=== PATIENT | male | born 1985 | race African-American/Black ===

== ENCOUNTER 2016-11-22 09:30 | Emergency (ER) | payer MEDICAID ==
[~2016-11-22] VITALS: Ht 175.3 cm; Wt 75.0 kg
[2016-11-22] MEDS ORDERED: ALBU2SYR PO (09:35)
[2016-11-22] MEDS ORDERED: TETANUS, DIPHTHERIA, PERTUSSIS VAC/PF 0.5ML (>7YR OLD) IM ONE (10:15)
[2016-11-22] MEDS ORDERED: LIDOCAINE HCL/EPINEPHRINE 1%-EPI 1:100,000 20 ML VIAL MC ONE (10:15)
[2016-11-22] MEDS ORDERED: BACITRACIN ZINC OINT UDPKT TOP ONE (10:15)
[2016-11-22] MEDS: IBUPROFEN 600MG TABLET PO NR ×2 (11:30→12:21)
[2016-11-22 12:15] VITALS: BP 134/82
== END 2016-11-22 12:05 | disposition home or self-care (01) ==
LOC: ER 09:40
DX: S01.411A Laceration without foreign body of right cheek and temporomandibular area, initial encounter (principal); S50.852A Superficial foreign body of left forearm, initial encounter; S00.83XA Contusion of other part of head, initial encounter; S01.21XA Laceration without foreign body of nose, initial encounter; J45.909 Unspecified asthma, uncomplicated; Y35.893A Legal intervention involving other specified means, suspect injured, initial encounter; W45.8XXA Other foreign body or object entering through skin, initial encounter; Y93.89 Activity, other specified; Y92.89 Other specified places as the place of occurrence of the external cause
CPT/HCPCS: 12011; 70450; 70486; 90471; 90715; 99284; J3490; Z7610